=== PATIENT | male | born 1960 | race Two or more races ===

== ENCOUNTER 2024-09-12 23:33 | Emergency (ER) | payer OTHER ==
[~2024-09-12] VITALS: Ht 170.2 cm; Wt 131.5 kg
[2024-09-13] MEDS ORDERED: ACET325T53 PO (03:26)
[2024-09-13] MEDS ORDERED: TDAP DIPH,PERTUSS,TET VAC/PF 0.5 ML DISP.SYRIN IM ONE (03:28)
[2024-09-13] MEDS: TDAP DIPH,PERTUSS,TET VAC/PF 0.5 ML DISP.SYRIN IM ONE (03:31)
[2024-09-13 03:36] VITALS: BP 150/82; O2SAT 99
== END 2024-09-13 03:37 | disposition home or self-care (01) ==
LOC: ER 09-13 00:11
DX: S01.312A Laceration without foreign body of left ear, initial encounter (principal); M25.532 Pain in left wrist; M54.2 Cervicalgia; M54.9 Dorsalgia, unspecified; R05.9 Cough, unspecified; E11.9 Type 2 diabetes mellitus without complications; V43.52XA Car driver injured in collision with other type car in traffic accident, initial encounter; Y93.89 Activity, other specified; Y92.488 Other paved roadways as the place of occurrence of the external cause; Y99.8 Other external cause status
CPT/HCPCS: 71045; 73110; 90715; A4606; A4663